=== PATIENT | female | born 1955 ===

== ENCOUNTER 2021-07-17 09:05 | Day surgery (SDC) | payer OTHER ==
[~2021-07-17 09:05] MED LIST: MICARDIS HCT 81 EACH PO
== END 2021-07-17 17:30 | disposition home or self-care (01) ==
LOC: CIR.AMB 09:05
PROVIDERS: ATTEND Urology
DX: N20.1 Calculus of ureter (principal)

== ENCOUNTER 2023-05-13 05:22 | Day surgery (SDC) | payer OTHER ==
[2023-05-10 09:19] LABS: HEMATOCRIT 35.6 % (36.0-45.00); HEMOGLOBIN 11.9 g/dL (12.0-15.00); MEAN CELL VOLUME 90.3 fL (80.00-100.00); MEAN CORPUSCULAR HEMOGLOBIN 30.1 pg (27.00-32.0); MEAN CORPUSCULAR HGB CONC 33.4 g/dl (32.0-36.0); RED BLOOD COUNT 3.95 M/uL (4.00-6.00); RED CELL DISTRIBUTION WIDTH 14.6 % (11.5-14.5)
[2023-05-10 09:22] LABS: PLATELET COUNT 119 K/uL (150-450)
[2023-05-10 09:33] LABS: PH,URINE 6.5 (5.0-8.0); URINE APPEARANCE Clear; URINE BILIRRUBIN Negative (NEGATIVE); URINE BLOOD Small; URINE COLOR Yellow; URINE GLUCOSE Negative (NEGATIVE); URINE LEUKOCYTE Small; URINE NITRATE Negative; URINE PROTEIN Negative (NEGATIVE); URINE UROBILINOGEN 0.2 E.U./dl
[2023-05-10 09:36] LABS: INR 0.94; PARTIAL THROMBOPLASTIN TIME 25.9 SECONDS (22.0-34.0); PROTHROMBIN TIME 9.9 SECONDS (9.0-11.5)
[2023-05-10 09:37] LABS: URINE BACTERIA 56.6 uL (0.0-1933); URINE RBC 35.9 uL (0.0-20.8); URINE WBC 92.3 uL (0.0-23.2)
[2023-05-10 09:52] LABS: CALCIUM 9.5 mg/dL (8.5-10.1); CREATININE SERUM 0.94 mg/dL (0.55-1.02); GFR 58.87; POTASSIUM 4.16 mEq/L (3.5-5.1)
[~2023-05-13 05:22] MED LIST changes: +VITAMIN C PO; +VITAMIN D PO
== END 2023-05-13 14:20 | disposition home or self-care (01) ==
LOC: CIR.AMB 05:22
PROVIDERS: ATTEND Urology
DX: N20.0 Calculus of kidney (principal)